=== PATIENT | male | born 1995 ===

== ENCOUNTER 2016-04-07 15:51 | Emergency (ER) | payer BC, MEDICAID, OTHER ==
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
[2016-04-07 19:07] VITALS: BP 122/65; PULSE 65; RESP 14; TEMP 98; O2SAT 98
== END 2016-04-07 19:16 | disposition home or self-care (01) ==
LOC: H.ER 15:51
DX: S00.93XA Contusion of unspecified part of head, initial encounter (principal); Y04.0XXA Assault by unarmed brawl or fight, initial encounter; Y92.89 Other specified places as the place of occurrence of the external cause
CPT/HCPCS: 70450; 70486; 96372; 99283; J1885

== ENCOUNTER 2016-11-19 22:29 | Emergency (ER) | payer BC, OTHER ==
[2016-11-19 22:35] VITALS: BP 140/58; PULSE 103; RESP 18; TEMP 98; O2SAT 98
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
== END 2016-11-19 23:23 | disposition home or self-care (01) ==
LOC: H.ER 22:29
DX: S61.451A Open bite of right hand, initial encounter (principal); W54.0XXA Bitten by dog, initial encounter; Y93.9 Activity, unspecified

== ENCOUNTER 2017-10-04 21:08 | Emergency (ER) | payer MEDICAID, OTHER ==
[2017-10-04] MEDS ORDERED: Albuterol-Ipratrop 3 mg / 0.5 (3 ml) UD INH STA (21:37)
--- NOTE | 2017-10-04 21:40 | ED PDOC ---
HPI: General Adult Time Seen by Provider: 10/04/17 21:31 Chief Complaint (Nursing): Flu-like Symptoms Chief Complaint (Provider): cough, sore throat History Per: Patient Additional Complaint(s): 22 year old male presents with cough, sore throat and body aches for 2 days. Patient denies any known sick contacts or recent travel. He is tolerating liquids and solids. No chest pain or SOB. PMD: none provided Past Medical History Reviewed: Historical Data, Nursing Documentation, Vital Signs Vital Signs: Last Vital Signs Temp 99.5 F 10/04/17 21:27 Pulse 108 H 10/04/17 21:27 Resp 16 10/04/17 21:27 BP 123/65 10/04/17 21:27 Pulse Ox 97 10/04/17 22:41 - Medical History PMH: No Chronic Diseases - Surgical History Surgical History: No Surg Hx - Family History Family History: States: No Known Family Hx - Living Arrangements Living Arrangements: With Family - Social History Current smoker - smoking cessation education provided: Yes Ex-Smoker (has not smoked in the last 12 months): No Alcohol: Other (yes) Drugs: Denies - Immunization History Hx Tetanus Toxoid Vaccination: Yes - Home Medications Home Medications: Ambulatory Orders Medication Instructions Recorded Naproxen 500 mg PO BID PRN #20 tab 04/07/16 Ciprofloxacin HCl [Cipro] 500 mg PO BID #10 tablet 11/19/16 Clindamycin [Cleocin] 3 tab PO TID #45 cap 11/19/16 Albuterol HFA [Ventolin HFA 90 1 puff IH ASDIR #1 unit 10/04/17 mcg/actuation (8 g)] Azithromycin [Zithromax] 250 mg PO DAILY #6 tab 10/04/17 Benzonatate 200 mg PO TID PRN #20 capsule 10/04/17 - Allergies Allergies/Adverse Reactions: Allergies Allergy/AdvReac Type Severity Reaction Status Date / Time Penicillins Allergy RASH Verified 10/04/17 21:27 Review of Systems ROS Statement: Except As Marked, All Systems Reviewed And Found Negative Constitutional: Positive for: Other (body aches). Negative for: Fever, Chills ENT: Positive for: Throat Pain, Throat Swelling Cardiovascular: Negative for: Chest Pain Respiratory: Positive for: Cough. Negative for: Shortness of Breath Gastrointestinal: Negative for: Nausea, Vomiting, Abdominal Pain Genitourinary Male: Negative for: Dysuria Neurological: Negative for: Headache Physical Exam - Reviewed Nursing Documentation Reviewed: Yes Vital Signs Reviewed: Yes - Physical Exam Appears: Positive for: Well, Non-toxic, No Acute Distress Skin: Positive for: Normal Color. Negative for: Rash Eye Exam: Positive for: Normal appearance ENT: Positive for: Pharyngeal Erythema, Tonsillar Swelling Cardiovascular/Chest: Positive for: Regular Rate, Rhythm Respiratory: Positive for: Wheezing. Negative for: Rales, Rhonchi, Respiratory Distress Gastrointestinal/Abdominal: Negative for: Soft, Tenderness Back: Negative for: L CVA Tenderness, R CVA Tenderness Extremity: Positive for: Normal ROM Neurologic/Psych: Positive for: Alert, Oriented - ECG O2 Sat by Pulse Oximetry: 97 (RA) Pulse Ox Interpretation: Normal - Other Rad CXR X-Ray: Interpreted by Me, Viewed By Me X-Ray Interpretation: no acute finding Nebulizer Treatments/Peak Flow - Duonebs Number of Bronchodilator Doses given?: 1 (duoneb) - Pre/Post Peak Flow Pre Treatment Peak Flow: 260 Post treatment Peak Flow: 280 - Steroid Treatment Steroid: Not Clinically Indicated - Clinical Response Clinical Response: Improved Medical Decision Making Medical Decision Making: Time: 21:37 Initial Impression: 22 year old male with URI symptoms --Chest x-ray --Tylenol --Motrin --rapid strep --Duoneb x 1 Patient feels better after DuoNeb treatment. He is aware of all diagnostic testing results, all questions answered. Patient given prescriptions for Zithromax, Tessalon Perles and Ventolin inhaler. Patient was counseled regarding smoking cessation and was referred to clinic for follow-up. Scribe Attestation: Documented by Paola Claros, acting as a scribe for Hellen Campos PA-C. Provider Scribe Attestation: All medical record entries made by the Scribe were at my direction and personally dictated by me. I have reviewed the chart and agree that the record accurately reflects my personal performance of the history, physical exam, medical decision making, and the department course for this patient. I have also personally directed, reviewed, and agree with the discharge instructions and disposition. Disposition - Clinical Impression Clinical Impression: Bronchitis - Patient ED Disposition Is Patient to be Admitted: No Counseled Patient/Family Regarding: Studies Performed, Diagnosis, Need For Followup, Rx Given, Smoking Cessation - Disposition Referrals: [facility] [Outside] Disposition: Routine/Home Disposition Time: 22:39 Condition: STABLE Additional Instructions: Take prescription meds as directed. Follow-up with clinic in 2-3 days. Prescriptions: Albuterol HFA [Ventolin HFA 90 mcg/actuation (8 g)] 1 puff IH ASDIR #1 unit Azithromycin [Zithromax] 250 mg PO DAILY #6 tab Benzonatate 200 mg PO TID PRN #20 capsule PRN Reason: Cough Instructions: Acute Bronchitis Forms: [employer] ([place])
[2017-10-04 23:39] VITALS: BP 122/70; PULSE 89; RESP 18; TEMP 98.7; O2SAT 100
--- NOTE | 2017-10-05 10:11 | RAD ---
Date of service: 10/04/2017 HISTORY: cough COMPARISON: No prior. TECHNIQUE: Chest PA and lateral FINDINGS: LUNGS: No active pulmonary disease. PLEURA: No significant pleural effusion identified. No pneumothorax apparent. CARDIOVASCULAR: Normal. OSSEOUS STRUCTURES: No significant abnormalities. VISUALIZED UPPER ABDOMEN: Normal. OTHER FINDINGS: None. IMPRESSION: No active disease.
== END 2017-10-04 23:15 | disposition home or self-care (01) ==
LOC: H.ER 21:08
DX: J40 Bronchitis, not specified as acute or chronic (principal); Z88.0 Allergy status to penicillin; F17.200 Nicotine dependence, unspecified, uncomplicated

== ENCOUNTER 2018-05-22 11:58 | Emergency (ER) | payer SELFPAY ==
[2018-05-22 12:13] VITALS: BP 112/70; PULSE 92; RESP 16; TEMP 98.4; O2SAT 100
--- NOTE | 2018-05-22 13:31 | ED PDOC ---
HPI: Abdomen Time Seen by Provider: 05/22/18 12:28 Chief Complaint (Nursing): Abdominal Pain Chief Complaint (Provider): Rib Pain History Per: Patient History/Exam Limitations: no limitations Onset/Duration Of Symptoms: Days Associated Symptoms: Back Pain Additional Complaint(s): 23 year old male with no past medical history who is presenting to the ED for evaluation of rib pain radiating to the back ongoing for 3 weeks. Patient states that he has not had any fall, injury, or trauma to the area and states that he has not taken any medications for the pain as he is not allowed to because of a drug program. He offers no other medical complaints at this time. PMD: none provided Past Medical History Reviewed: Historical Data, Nursing Documentation, Vital Signs Vital Signs: Last Vital Signs Temp 98.4 F 05/22/18 12:12 Pulse 92 H 05/22/18 12:12 Resp 16 05/22/18 12:12 BP 112/70 05/22/18 12:12 Pulse Ox 100 05/22/18 12:12 - Medical History PMH: No Chronic Diseases - Surgical History Surgical History: No Surg Hx - Family History Family History: States: Unknown Family Hx - Social History Current smoker - smoking cessation education provided: No Alcohol: Social Drugs: Denies - Immunization History Hx Tetanus Toxoid Vaccination: Yes - Home Medications Home Medications: Ambulatory Orders Medication Instructions Recorded Naproxen 500 mg PO BID PRN #20 tab 04/07/16 Ciprofloxacin HCl [Cipro] 500 mg PO BID #10 tablet 11/19/16 Clindamycin [Cleocin] 3 tab PO TID #45 cap 11/19/16 Albuterol HFA [Ventolin HFA 90 1 puff IH ASDIR #1 unit 10/04/17 mcg/actuation (8 g)] Azithromycin [Zithromax] 250 mg PO DAILY #6 tab 10/04/17 Benzonatate 200 mg PO TID PRN #20 capsule 10/04/17 Ibuprofen [Motrin] 600 mg PO Q6H PRN #20 tab 05/22/18 - Allergies Allergies/Adverse Reactions: Allergies Allergy/AdvReac Type Severity Reaction Status Date / Time Penicillins Allergy RASH Verified 10/04/17 21:27 Review of Systems ROS Statement: Except As Marked, All Systems Reviewed And Found Negative Musculoskeletal: Positive for: Back Pain, Other (rib pain ) Physical Exam - Reviewed Nursing Documentation Reviewed: Yes Vital Signs Reviewed: Yes - Physical Exam Appears: Positive for: Non-toxic, No Acute Distress Head Exam: Positive for: ATRAUMATIC, NORMAL INSPECTION, NORMOCEPHALIC Skin: Positive for: Normal Color, Warm, DRY Eye Exam: Positive for: EOMI, Normal appearance, PERRL Neck: Positive for: Normal, Painless ROM Cardiovascular/Chest: Positive for: Regular Rate, Rhythm, Other (tenderness to lower anterior and lateral ribs, no deformity or crepitus ). Negative for: Mur mur Respiratory: Positive for: Normal Breath Sounds Gastrointestinal/Abdominal: Positive for: Normal Exam, Soft. Negative for: Tenderness Back: Positive for: Normal Inspection. Negative for: L CVA Tenderness, R CVA Tenderness, Vertebral Tenderness Extremity: Positive for: Normal ROM. Negative for: Deformity, Swelling Neurological/Psych: Positive for: Awake, Alert, Normal Tone, Oriented. Negative for: Motor/Sensory Deficits - ECG O2 Sat by Pulse Oximetry: 100 (RA) Pulse Ox Interpretation: Normal Medical Decision Making Medical Decision Making: Time: 13:15 Plan: --Motrin 600 mg PO --X-Ray Ribs and Chest LT Accession No. : [id number] Patient Name / ID : ALISIA AG / [id number] Exam Date : 05/22/2018 13:09:45 ( Approved ) Study Comment : Sex / Age : M / 23Y Creator : Sandro Leigh MD Dictator : Sandro Leigh MD Litigator : Snowblower Mechanic : Sandro Leigh MD Approver2 : Report Date : 05/22/2018 13:52:44 My Comment : Date of service: 05/22/2018 PROCEDURE: Radiographs of the Chest and Left Ribs. HISTORY: L anterior rib pain COMPARISON: None available. TECHNIQUE: Frontal radiograph of the chest and multiple oblique radiographs of the left ribs were obtained. 4 views obtained. FINDINGS: LEFT RIBS: No fracture or focal lesion visualized. LUNGS: Clear. PLEURA: No pneumothorax or pleural fluid. CARDIOVASCULAR: Normal cardiac size. No pulmonary vascular congestion. No aortic atherosclerotic calcification present OTHER FINDINGS: None. IMPRESSION: Unremarkable radiographs of the chest and left ribs. No left rib fracture. Scribe Attestation: Documented by Merary Meneses, acting as a scribe for Gita Amin MD. Provider Scribe Attestation: All medical record entries made by the Scribe were at my direction and personall y dictated by me. I have reviewed the chart and agree that the record accurately reflects my personal performance of the history, physical exam, medical decision making, and the department course for this patient. I have also personally directed, reviewed, and agree with the discharge instructions and disposition. Disposition - Clinical Impression Clinical Impression: Rib pain - Disposition Disposition: Routine/Home Disposition Time: 14:44 Condition: STABLE Prescriptions: Ibuprofen [Motrin] 600 mg PO Q6H PRN #20 tab PRN Reason: Pain, Moderate (4-7) Instructions: Muscle and Bone Pain (DC) Forms: [employer] (Citizen Of [place])
--- NOTE | 2018-05-22 13:56 | RAD ---
Date of service: 05/22/2018 PROCEDURE: Radiographs of the Chest and Left Ribs. HISTORY: L anterior rib pain COMPARISON: None available. TECHNIQUE: Frontal radiograph of the chest and multiple oblique radiographs of the left ribs were obtained. 4 views obtained. FINDINGS: LEFT RIBS: No fracture or focal lesion visualized. LUNGS: Clear. PLEURA: No pneumothorax or pleural fluid. CARDIOVASCULAR: Normal cardiac size. No pulmonary vascular congestion. No aortic atherosclerotic calcification present OTHER FINDINGS: None. IMPRESSION: Unremarkable radiographs of the chest and left ribs. No left rib fracture.
== END 2018-05-22 15:00 | disposition home or self-care (01) ==
LOC: H.ER 11:58
DX: R07.82 Intercostal pain (principal); Z88.0 Allergy status to penicillin